=== PATIENT | male | born 1955 | race Caucasian/White ===

== ENCOUNTER 2017-11-11 13:35 | Day surgery (SDC) | payer OTHER ==
[~2017-11-11] VITALS: Ht 200.7 cm; Wt 105.7 kg
[~2017-11-11 13:35] MED LIST: DEXAMETHASONE SOD PHOS 4 MG/ML VIAL IV ONE; GLYCOPYRROLATE 1 MG/5 ML SYRINGE IV PUSH ONE; LIDOCAINE HCL 1% PF 5 ML SYRINGE OTHER ONE; ONDANSETRON HCL 4 MG/2 ML VIAL IV PUSH ONE; PROPOFOL 200 MG/20 ML AMP IV ONE; ePHEDrine/NS 25 MG/5 ML SYRINGE IV ONE
[2017-11-11] MEDS ORDERED: PHENYLEPHRINE HCL 2.5% OPTH SOLN 2 ML BTL RIGHT EYE SCH (14:30)
[2017-11-11] MEDS ORDERED: LACTATED RINGER'S 1000 ML IV PRN (14:30)
[2017-11-11] MEDS ORDERED: POVIDONE IODINE 5% (ANTISEPSIS KIT) 4 APPLICATIONS EACH NARE PRN (14:30)
[2017-11-11] MEDS ORDERED: SODIUM CHLORID 0.9% 500 ML IV PRN (14:30)
[2017-11-11] MEDS ORDERED: TROPICAMIDE 1% OPHT SOLN 15 ML BTL RIGHT EYE SCH (14:30)
[2017-11-11] MEDS ORDERED: ATROPINE SULFATE 1% OPHT SOLN 5 ML BTL RIGHT EYE SCH (14:30)
[2017-11-11] MEDS ORDERED: CHLORHEXIDINE GLUCONATE 2 % 1 PACK (2 CLOTHS) TOPICAL PRN (14:30)
[2017-11-11] MEDS ORDERED: METOPROLOL TARTRATE 25 MG TAB PO PRN (14:30)
[2017-11-11] MEDS ORDERED: CYCLOPENTOLATE HCL 1% OPHT SOLN 2 ML BTL RIGHT EYE SCH (14:30)
[2017-11-11] MEDS ORDERED: ATROPINE SULFATE 1% OPHT SOLN 2 ML BTL ONE (15:04)
[2017-11-11 15:06] LABS: AUTOMATED NEUTROPHIL # 4.8 TH/MM3 (1.8-7.7); BASOPHIL # 0.1 TH/MM3 (0-0.2); BASOPHIL % 0.7 % (0.0-2.0); EOSINOPHIL # 0.2 TH/MM3 (0-0.4); EOSINOPHIL % 2.3 % (0.0-4.0); HEMOGLOBIN 16.7 GM/DL (13.0-17.0); LYMPH % 23.9 % (9.0-44.0); LYMPHOCYTE # 1.7 TH/MM3 (1.0-4.8); MEAN CELL VOLUME 88.9 FL (80.0-100.0); MEAN CORPUSCULAR HEMOGLOBIN 29.7 PG (27.0-34.0); MEAN CORPUSCULAR HGB CONC 33.4 % (32.0-36.0); MEAN PLATELET VOLUME 7.1 FL (7.0-11.0); MONO % 5.6 % (0.0-8.0); MONOCYTE # 0.4 TH/MM3 (0-0.9); NEUT % 67.5 % (16.0-70.0); PLATELET COUNT 250 TH/MM3 (150-450); RED BLOOD COUNT 5.62 MIL/MM3 (4.50-5.90); RED CELL DISTRIBUTION WIDTH 14.1 % (11.6-17.2); WHITE BLOOD COUNT 7.1 TH/MM3 (4.0-11.0)
[2017-11-11] MEDS ORDERED: ceFAZolin INJ 1,000 MG VIAL ONE (15:47)
[2017-11-11] MEDS ORDERED: DEXAMETHASONE SOD PHOS 4 MG/ML VIAL ONE (15:47)
[2017-11-11] MEDS ORDERED: STERILE WATER FOR INJECTION 20 ML VIAL ONE (15:47)
[2017-11-11] MEDS ORDERED: TOBRAMYCIN/DEXAMETHASONE OPTH OINT 3.5 GM TUBE ONE (15:47)
[2017-11-11] MEDS ORDERED: TRIAMCINOLONE ACETONIDE 40 MG/ML VIAL ONE (15:47)
[2017-11-11] MEDS ORDERED: EPINEPHrine HCL (1:1000) 1 MG/ML VIAL ONE (15:48)
--- NOTE | 2017-11-11 16:31 | EKG ---
Date Performed: 11/11/2017 Time Performed: 14:15:00 PTAGE: 62 years EKG: Sinus rhythm LEFT AXIS DEVIATION NONSPECIFIC INTRAVENTRICULAR CONDUCTION DELAY ABNORMAL ECG NO PREVIOUS TRACING DOCTOR: Tyron Brush Interpretating Date/Time 11/11/2017 16:29:38
[2017-11-11] MEDS ORDERED: prednisoLONE ACETATE 1% OPHT SUSP 5 ML BTL RIGHT EYE SCH (17:30)
[2017-11-11] MEDS ORDERED: MOXIFLOXACIN 0.5% OPHT SOLN 3 ML BTL RIGHT EYE SCH (17:30)
[2017-11-11] MEDS ORDERED: DO NOT ADM ANY ANTICOAGULANT DRUGS PRN (18:45)
[2017-11-11] MEDS ORDERED: MIDAZOLAM HCL 2 MG/2 ML VIAL ONE (19:01)
[2017-11-11 19:44] VITALS: BP 151/82; PULSE 77; RESP 19; O2SAT 99
--- NOTE | 2017-11-14 14:47 | MP ---
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 PROCEDURE Pars vitrectomy, retinal detachment repair, endolaser, air-fluid exchange, insertion of 18% SF6 gas, right eye. COMPLICATIONS None BLOOD LOSS Less than [address] Denise. General anesthesia. INDICATIONS FOR PROCEDURE: This is a delightful patient who presented with severe vision loss on his right eye. The patient was found to have a near total retinal detachment extending into his fovea with multiple retinal tears. The patient elected for surgical correction. The patient understands the severity of his condition and possibility of proliferative vitreoretinopathy and redetachment. PROCEDURE NOTE The risks, benefits and alternatives were reviewed. The patient was brought to the operating room, general anesthesia was established. The right eye was prepped and draped in sterile fashion with Betadine in the conjunctival fornix. A three port pars plana vitrectomy was established with a self-retaining infusion cannula. Core vitreous was evacuated and vitreous traction to the peripheral retina was relieved with vitrectomy. PFO was instilled and subretinal fluid was removed via the supranasal retinal horseshoe tear. The retina was completely reattached. Endolaser was applied surrounding retinal tears and any area suspicious for weakening. Air-fluid exchange was carried out and retina remained nicely attached. 18% SF6 gas was instilled. Trocars was removed and sclerotomies closed. Subconjunctival injection of Ancef and dexamethasone were given. The eye was patched with Tobramycin ointment. The patient was brought to the recovery room in stable condition. He is to continue follow up with [facility] for postoperative care, and then further care with a specialist at home. Franklyn Kc MD /ALLEN /6:41 PM /2:34 PM
== END 2017-11-11 19:45 | disposition home or self-care (01) ==
LOC: HSDC 13:35
PROVIDERS: ATTEND Ophthalmology
DX: H33.021 Retinal detachment with multiple breaks, right eye (principal); R94.31 Abnormal electrocardiogram [ECG] [EKG]; Z01.818 Encounter for other preprocedural examination; Z01.810 Encounter for preprocedural cardiovascular examination
CPT/HCPCS: 00145; 67108; 85025; 93005; J0171; J0690; J1100; J2250; J2405; J3010; J3301; J7120